=== PATIENT | female | born 1965 | race Caucasian/White ===

== ENCOUNTER → 2016-11-23 | Outpatient (CLI) | payer OTHER | END | disposition short-term general hospital (02) | LOC: CLSURG 08:01 | DX: N63 Unspecified lump in breast (principal) ==

== ENCOUNTER 2016-11-30 07:22 | Day surgery (SDC) | payer OTHER ==
[~2016-11-30] VITALS: Ht 170.2 cm; Wt 109.3 kg
== END 2016-11-30 11:15 | disposition short-term general hospital (02) ==
LOC: SURGOP 07:22
PROC: 0HBU0ZX Excision of Left Breast, Open Approach, Diagnostic (ICD-10-PCS; principal; 2016-11-30)
DX: N60.12 Diffuse cystic mastopathy of left breast (principal); R92.0 Mammographic microcalcification found on diagnostic imaging of breast; I10 Essential (primary) hypertension; E78.5 Hyperlipidemia, unspecified; F41.9 Anxiety disorder, unspecified; F32.9 Major depressive disorder, single episode, unspecified; E66.9 Obesity, unspecified; G43.909 Migraine, unspecified, not intractable, without status migrainosus; F17.210 Nicotine dependence, cigarettes, uncomplicated; Z68.41 Body mass index [BMI] 40.0-44.9, adult; Z79.899 Other long term (current) drug therapy; Z98.51 Tubal ligation status; Z98.890 Other specified postprocedural states
CPT/HCPCS: J0690; J1100; J2250; J2405; J2765; J3010

== ENCOUNTER → 2016-12-07 | Outpatient (CLI) | payer OTHER | END | disposition short-term general hospital (02) | LOC: CLSURG 07:59 | DX: R92.1 Mammographic calcification found on diagnostic imaging of breast (principal) ==